=== PATIENT | male | born 1985 ===

== ENCOUNTER 2017-07-03 22:19 | Emergency (ER) | payer MEDICAID ==
[~2017-07-03] VITALS: Ht 188 cm; Wt 102.4 kg
[2017-07-03 22:20] VITALS: BP 137/80
[2017-07-03] MEDS ORDERED: KETOROLAC 30 MG/1 ML ONE (22:52)
[2017-07-03] MEDS ORDERED: KETOROLAC 30 MG/1 ML IM ONE (23:00)
[2017-07-03 23:13] LABS: BASOPHILS # (AUTO) 0.05 x10^3/uL (0-0.1); BASOPHILS % (AUTO) 1 % (0-1); EOSINOPHILS # (AUTO) 0.23 x10^3/uL (0-0.4); EOSINOPHILS % (AUTO) 3 % (1-7); LYMPHOCYTES # (AUTO) 2.62 x10^3/uL (1-3.4); LYMPHOCYTES % (AUTO) 33 % (22-44); MD NO; MEAN CORPUSCULAR HEMOGLOBIN 30.7 pg (27.5-34.5); MEAN CORPUSCULAR HGB CONC 33.9 g/dL (33.2-36.2); MEAN CORPUSCULAR VOLUME 90.8 fL (81-97); MEAN PLATELET VOLUME 7.8 fL (7.4-10.4); MONOCYTES # (AUTO) 0.62 x10^3/uL (0.2-0.8); MONOCYTES % (AUTO) 8 % (2-9); NEUTROPHILS # (AUTO) 4.33 x10^3/uL (1.8-6.8); NEUTROPHILS % (AUTO) 55 % (42-75); PLATELET COUNT 195 x10^3/uL (130-400); RED BLOOD COUNT 5.14 x10^6/uL (4.38-5.82); RED CELL DISTRIBUTION WIDTH 12.8 % (9.4-14.8)
[2017-07-03 23:23] LABS: ALANINE AMINOTRANSFERASE 21 U/L (12-78); ALBUMIN 3.7 g/dL (3.4-5.0); ANION GAP 7 mmol/L (5-15); CALCIUM 8.4 mg/dL (8.5-10.1); CHLORIDE 109 mmol/L (98-107)
[2017-07-03 23:26] LABS: ALKALINE PHOSPHATASE 51 U/L (45-117); BILIRUBIN,TOTAL 0.8 mg/dL (0.2-1.0); CREATININE 0.87 mg/dL (0.7-1.3); TOTAL PROTEIN 6.9 g/dL (6.4-8.2)
[2017-07-04 00:05] LABS: MICROSCOPIC AUTO
[2017-07-04 00:10] LABS: CULTURE INDICATED? YES
== END 2017-07-04 00:04 | disposition home or self-care (01) ==
LOC: ED 22:46
DX: M54.5 Low back pain (principal); R82.99 Other abnormal findings in urine
CPT/HCPCS: 36415; 80053; 81001; 85025; 87086; 96372; 99284; J1885

== ENCOUNTER 2018-09-10 12:41 | Day surgery (SDC) | payer MEDICAID, OTHER ==
[~2018-09-10] VITALS: Ht 190.5 cm; Wt 92.9 kg
[2018-09-10 13:01] VITALS: BP 128/76
[2018-09-10] MEDS ORDERED: NO HOME MEDICATIONS (13:07)
[2018-09-10] MEDS ORDERED: LACTATED RINGERS 1,000 ML IV SCH (13:07)
[2018-09-10] MEDS ORDERED: LIDOCAINE 1%-EPI 1:100K, 20ML ONE (13:47)
[2018-09-10] MEDS ORDERED: EPINEPHRINE 1 MG/ML, 1ML ONE (13:47)
[2018-09-10] MEDS ORDERED: BUPIVACAINE/PF 0.5% ONE (13:47)
[2018-09-10] MEDS ORDERED: MIDAZOLAM 1 MG/ML, 2ML ONE (14:10)
[2018-09-10] MEDS ORDERED: FENTANYL PF 100 MCG/2ML ONE (14:10)
[2018-09-10] MEDS ORDERED: ONDANSETRON 2MG/ML, 2ML ONE (15:05)
[2018-09-10] MEDS ORDERED: DEXAMETHASONE 4 MG/ML, 1ML ONE (15:05)
[2018-09-10] MEDS ORDERED: CEFAZOLIN 1,000 MG ONE ×3 (15:05→19:47)
[2018-09-10] MEDS ORDERED: PROPOFOL 10 MG/ML, 20ML ONE (15:05)
[2018-09-10] MEDS ORDERED: MIDAZOLAM 1 MG/ML, 2ML IV PRN (15:30)
[2018-09-10] MEDS ORDERED: MORPHINE SULFATE 4 MG/ML, 1ML IVPush PRN (15:30)
[2018-09-10] MEDS ORDERED: hydrALAzine 20 MG/ML, 1ML IV PRN (15:30)
[2018-09-10] MEDS ORDERED: ACETAMINOPHEN 325 MG TABLET PO PRN (15:30)
[2018-09-10] MEDS ORDERED: ALBUTEROL SULFATE 2.5 MG/3 ML NPPB PRN (15:30)
[2018-09-10] MEDS ORDERED: DIAZEPAM 5 MG/ML, 10ML VIAL IVPush PRN (15:30)
[2018-09-10] MEDS ORDERED: LABETALOL 5 MG/ML SYRINGE IV PRN (15:30)
[2018-09-10] MEDS ORDERED: ONDANSETRON ODT 8 MG PO PRN (15:30)
[2018-09-10] MEDS ORDERED: HALOPERIDOL 5 MG/ML IV PRN (15:30)
[2018-09-10] MEDS ORDERED: PROMETHAZINE 12.5 MG SUPP PR PRN (15:30)
[2018-09-10] MEDS ORDERED: EPHEDRINE 50 MG/ML, 1ML IVPush PRN (15:30)
[2018-09-10] MEDS ORDERED: MEPERIDINE/PF 25MG/0.5ML IVPush PRN (15:30)
[2018-09-10] MEDS ORDERED: PROMETHAZINE 25 MG/ML, 1ML IV PRN (15:30)
[2018-09-10] MEDS ORDERED: ONDANSETRON 2MG/ML, 2ML IV PRN (15:30)
[2018-09-10] MEDS ORDERED: OXYcodone 5 MG/5 ML ORAL.SOL UDC PO PRN (15:30)
[2018-09-10] MEDS ORDERED: FENTANYL PF 100 MCG/2ML IV PRN (15:30)
[2018-09-10] MEDS ORDERED: HYDROmorphone 2 MG/ML, 1ML IVPush PRN (15:30)
[2018-09-10] MEDS ORDERED: ACETAMINOPHEN 650 MG/20.3 ML UDC ONE (15:40)
[2018-09-10] MEDS ORDERED: OXYcodone 5 MG/5 ML ORAL.SOL UDC ONE (15:40)
[2018-09-10] MEDS ORDERED: PHENYLEPHRINE 10 MG/ML ONE (19:47)
[2018-09-10] MEDS ORDERED: ROCURONIUM 10 MG/ML,10ML ONE (19:47)
[2018-09-10] MEDS ORDERED: SUCCINYLCHOLINE 20 MG/ML, 10ML ONE (19:47)
== END 2018-09-10 16:45 | disposition home or self-care (01) ==
LOC: OUT 12:41
PROVIDERS: ATTEND Orthopaedic Surgery
DX: M70.41 Prepatellar bursitis, right knee (principal); Z87.891 Personal history of nicotine dependence
CPT/HCPCS: 27340; J0171; J0330; J0690; J1100; J2250; J2370; J2405; J2704; J3010; J3490; J7120

== ENCOUNTER 2019-11-24 09:40 | Emergency (ER) | payer OTHER ==
[~2019-11-24] VITALS: Ht 190.5 cm; Wt 96.7 kg
[~2019-11-24 09:40] MED LIST: NO HOME MEDICATIONS
[2019-11-24] MEDS ORDERED: KETOROLAC 30 MG/1 ML IM ONE (10:30)
[2019-11-24 10:41] LABS: MICROSCOPIC AUTO
[2019-11-24] MEDS ORDERED: KETOROLAC 60 MG/2 ML ONE (10:52)
[2019-11-24 11:31] VITALS: BP 135/86
== END 2019-11-24 11:34 | disposition home or self-care (01) ==
LOC: ED 10:44
DX: N23 Unspecified renal colic (principal); R31.9 Hematuria, unspecified; R39.15 Urgency of urination
CPT/HCPCS: 74018; 81001; 96372; 99284; J1885

== ENCOUNTER 2020-11-01 19:20 | Emergency (ER) | payer OTHER ==
[~2020-11-01] VITALS: Ht 182.9 cm; Wt 105.6 kg
[2020-11-01 19:28] VITALS: BP 132/90
[2020-11-01] MEDS ORDERED: LIDOCAINE-MPF 1%, 5ML INFIL ONE (19:30)
[2020-11-01] MEDS ORDERED: LIDOCAINE-MPF 1%, 5ML ONE (21:06)
--- NOTE | 2020-11-01 21:56 | NUR ---
Patient/Caregiver given discharge instructions and they have confirmed that they understand the instructions. Patient ambulatory with steady gait. NAD, all questions answered appropriately, denies additional needs at this time. No personal belongings left in room after discharge.
== END 2020-11-01 21:57 | disposition home or self-care (01) ==
LOC: ED 21:51
DX: S61.212A Laceration without foreign body of right middle finger without damage to nail, initial encounter (principal); W22.8XXA Striking against or struck by other objects, initial encounter; Y93.89 Activity, other specified; Y92.009 Unspecified place in unspecified non-institutional (private) residence as the place of occurrence of the external cause; Y99.8 Other external cause status
CPT/HCPCS: 12042; 99285

== ENCOUNTER 2020-12-01 16:32 | Emergency (ER) | payer OTHER ==
[~2020-12-01] VITALS: Ht 190.5 cm; Wt 105.3 kg
[2020-12-01 16:35] VITALS: BP 148/54
== END 2020-12-01 17:44 | disposition home or self-care (01) ==
LOC: ED 17:05
DX: M79.644 Pain in right finger(s) (principal); G89.29 Other chronic pain
CPT/HCPCS: 29125; 99283

== ENCOUNTER 2021-02-05 13:29 | Emergency (ER) | payer OTHER ==
[~2021-02-05] VITALS: Ht 190.5 cm; Wt 106.1 kg
[2021-02-05 13:37] VITALS: BP 141/92
--- NOTE | 2021-02-05 15:16 | NUR ---
discharge by PAEmily
== END 2021-02-05 15:43 ==
LOC: ED 15:15
DX: S16.1XXA Strain of muscle, fascia and tendon at neck level, initial encounter (principal); S43.402A Unspecified sprain of left shoulder joint, initial encounter; V49.09XA Driver injured in collision with other motor vehicles in nontraffic accident, initial encounter; Y93.89 Activity, other specified; Y92.009 Unspecified place in unspecified non-institutional (private) residence as the place of occurrence of the external cause; Y99.8 Other external cause status
CPT/HCPCS: 72050; 99284